=== PATIENT | female | born 1970 | race Two or more races ===

== ENCOUNTER → 2018-08-25 | Outpatient (CLI) | payer BC | LOC: MSC 16:45 | PROVIDERS: ATTEND Anesthesiology | DX: M46.96 Unspecified inflammatory spondylopathy, lumbar region (principal); M47.27 Other spondylosis with radiculopathy, lumbosacral region; M51.26 Other intervertebral disc displacement, lumbar region; M62.830 Muscle spasm of back; G89.4 Chronic pain syndrome; Z79.1 Long term (current) use of non-steroidal anti-inflammatories (NSAID) ==